=== PATIENT | female | born 1955 | race Asian ===

== ENCOUNTER → 2019-03-17 | Outpatient (CLI) | payer OTHER | END | disposition home or self-care (01) | LOC: RADPV 11:48 | PROVIDERS: ATTEND Internal Medicine | DX: M54.9 Dorsalgia, unspecified (principal) | CPT/HCPCS: 72100 ==

== ENCOUNTER → 2019-04-03 | Outpatient (CLI) | payer OTHER | END | disposition home or self-care (01) | LOC: RADPV 10:03 | PROVIDERS: ATTEND Internal Medicine | DX: M46.02 Spinal enthesopathy, cervical region (principal); M25.511 Pain in right shoulder | CPT/HCPCS: 72040 ==

== ENCOUNTER → 2020-04-28 | Outpatient (CLI) | payer OTHER | END | disposition home or self-care (01) | LOC: RADPV 14:51 | PROVIDERS: ATTEND Internal Medicine | DX: R07.81 Pleurodynia (principal); M54.5 Low back pain; M25.552 Pain in left hip | CPT/HCPCS: 72072; 73503 ==

== ENCOUNTER → 2020-06-06 | Outpatient (CLI) | payer OTHER | END | disposition home or self-care (01) | LOC: RADMN 14:54 | PROVIDERS: ATTEND Internal Medicine | DX: M25.572 Pain in left ankle and joints of left foot (principal) | CPT/HCPCS: 73610-TC ==